=== PATIENT | female | born 1990 | race American Indian/Alaskan Native ===

== ENCOUNTER 2019-11-13 02:46 | Emergency (ER) | payer MEDICAID ==
--- NOTE | 2019-11-13 03:30 | EDM.PDOC ---
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 She is a 3 para 2 she believes she is never received a RhoGam shot does not know her blood type states her hemoglobin usually does run low. 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 History: Social & Family History - Tobacco Use Smoking Status *Q: Current Every Day Smoker Years of Tobacco use: 15 Packs/Tins Daily: 0.5 - Caffeine Use Caffeine Use: Reports: None - Recreational Drug Use Recreational Drug Use: No ED ROS GENERAL - Review of Systems Review Of Systems: See Below Constitutional: Reports: No Symptoms : Reports: Irregular Menses Psychiatric: Reports: Anxiety ED EXAM - Physical Exam Exam: See Below Text/Narrative:: Vaginal exam in the presence of nursing staff after insertion of the speculum there is a large amount of blood and clots there is tissue present this is retrieved with a bayonet sent to pathology for examination when the cervical loss is visualized it is open with what appears to be products of conception Exam Limited By: No Limitations General Appearance: Alert, Mild Distress Respiratory/Chest: No Respiratory Distress Psychiatric: Anxious Course - Vital Signs Last Recorded V/S: Last Vital Signs Temp 97.1 F 11/13/19 02:57 Pulse 78 11/13/19 03:07 Resp 16 11/13/19 03:07 BP 109/67 11/13/19 03:07 Pulse Ox 95 11/13/19 03:07 - Orders/Labs/Meds Orders: Active Orders 24 hr Category Date Time Status OB 1st Tri Sgl 1st Gest [US] Stat Exams 11/13/19 Ordered OB Transvaginal [US] Stat Exams 11/13/19 04:21 Ordered Labs: Laboratory Tests 11/13/19 11/13/19 Range/Units 03:24 03:24 WBC 8.7 (4.5-11.0) K/uL RBC 3.82 (3.30-5.50) M/uL Hgb 9.4 L (12.0-15.0) g/dL Hct 31.3 L (36.0-48.0) % MCV 82 (80-98) fL MCH 25 L (27-31) pg MCHC 30 L (32-36) % Plt Count 402 H (150-400) K/uL HCG, Quant 61275 H (0-6) mIU/mL Meds: Medications Discontinued Medications Generic Name Dose Route Start Last Admin Trade Name Freq PRN Reason Stop Dose Admin Acetaminophen 650 mg 11/13/19 04:21 11/13/19 04:27 Tylenol PO 11/13/19 04:22 650 mg NOW ONE Administration Acetaminophen Confirm 11/13/19 04:30 Tylenol Administered 11/13/19 04:31 Dose 325 mg .ROUTE .STK-MED ONE Departure - Departure Time of Disposition: 05:50 Disposition: Home, Self-Care 01 Condition: Fair Clinical Impression: Incomplete - Discharge Information Instructions: Miscarriage, [id number] Referrals: PCP,None [Primary Care Provider] - Forms: ED Department Discharge Additional Instructions: Continue to use Tylenol or Motrin as needed for pain control, please follow-up with your primary care in the next 1 to 2 days for further evaluation plan for continued vaginal bleeding until the products of conception are passed Sepsis Event Note - Evaluation Sepsis Screening Result: No Definite Risk - Focused Exam Vital Signs: Vital Signs Temp Pulse Resp BP Pulse Ox 11/13/19 03:07 78 16 109/67 95 11/13/19 02:57 97.1 F 61 18 90/33 L 97 Date Exam was Performed: 11/13/19 Time Exam was Performed: 05:49 - My Orders Last 24 Hours: My Active Orders 11/13/19 OB 1st Tri Sgl 1st Gest [US] Stat 11/13/19 04:21 OB Transvaginal [US] Stat - Assessment/Plan Last 24 Hours: My Active Orders 11/13/19 OB 1st Tri Sgl 1st Gest [US] Stat 11/13/19 04:21 OB Transvaginal [US] Stat Plan: Assessment Acuity = acute Site and laterality = incomplete Etiology = unknown Manifestations = vaginal bleeding Location of injury = Home Lab values = hemoglobin low at 9.4 consistent normochromic anemia beta-hCG 35, 674 ultrasound demonstrates retained products of conception Plan I did review lab results with her she is going to follow-up with her primary care in the morning for further treatment and evaluation This note was dictated using [employer] voice recognition software please call with any questions on syntax or grammar.
[2019-11-13] MEDS ORDERED: Acetaminophen 325 MG Tab PO ONE (04:21)
[2019-11-13] MEDS ORDERED: Acetaminophen 325 MG Tab ONE (04:30)
--- NOTE | 2019-11-13 10:20 | US ---
OB 1st Tri Sgl 1st Gest, OB Transvaginal CLINICAL HISTORY: Vaginal bleeding, Comparison: None FINDINGS: Real-time transabdominal and transvaginal images were obtained through the pelvis. Uterus measures 9.7 x 5.9 x 6.1 cm. Endometrium is thickened echogenic and heterogeneous. There are a few scattered small fluid collections. No heart activity is identified. No free fluid is seen in the pelvis. Right ovary measures 3.6 x 3.2 x 1.8 cm. There is normal blood flow. Left ovary is not identified. No pelvic fluid collections are seen IMPRESSION: No evidence of viable intrauterine regnancy Thickened and heterogeneous endometrium is likely related to spontaneous . Retained products of conception not excluded.
== END 2019-11-13 06:18 | disposition home or self-care (01) ==
LOC: JP.ED 02:46
DX: O03.4 Incomplete spontaneous abortion without complication (principal); F17.210 Nicotine dependence, cigarettes, uncomplicated
CPT/HCPCS: 36415; 76801; 76817; 84702; 85027; 99285; A9270

== ENCOUNTER 2022-04-25 12:20 | Emergency (ER) | payer MEDICAID | END 2022-04-25 16:03 | disposition home or self-care (01) | LOC: JP.ED 12:20 | DX: K04.7 Periapical abscess without sinus (principal); K02.9 Dental caries, unspecified; Z72.0 Tobacco use | CPT/HCPCS: 99282 ==